=== PATIENT | female | born 1965 | race Caucasian/White ===

== ENCOUNTER → 2017-05-12 | Outpatient (CLI) | payer OTHER ==
--- NOTE | 2017-05-12 16:02 | REPMRS ---
Patient History The patient states she had a clinical breast exam in 2016. Family history of breast cancer in maternal grandmother under age 50. Took hormonal contraceptives for 18 years. Taking estrogen for 3 years. Digital Mammo Screening Bilat: May 12, 2017 - Exam #: [id number] Bilateral CC and MLO view(s) were taken. Technologist: Fabiola Verma, Technologist Prior study comparison: March 05, 2016, digital woman screen mammo, performed at [facility]. March 12, 2015, digital woman screen mammo, performed at [facility]. FINDINGS: There are scattered fibroglandular densities. There has been no change in the appearance of the mammogram from the prior studies. There is a mild amount of residual fibroglandular tissue which is fairly symmetric. There is no interval development of dominant mass, architectural distortion, or clustered microcalcification suggestive of malignancy. ASSESSMENT: BI-RADS/ACR category 1 mammogram. Negative. Recommendation Routine screening mammogram in 1 year (for women over age 40). This mammogram was interpreted with the aid of an FDA-approved computer-aided dectection system. Electronically Signed By: Nickolas Merchant MD 05/12/17 [id number]
== END ==
LOC: M RAD 15:06
PROVIDERS: ATTEND Obstetrics & Gynecology
DX: Z12.39 Encounter for other screening for malignant neoplasm of breast (principal)

== ENCOUNTER → 2017-05-28 | Outpatient (REF) | payer OTHER ==
[2017-05-28 13:29] LABS: LUTEINIZING HORMONE 38.4 mIU/mL
[2017-05-28 13:29] LABS: PROGESTERONE < 0.2 NG/ML
[2017-05-28 13:30] LABS: ESTRADIOL < 19.0 PG/ML; FOLLICLE STIMULATING HORMONE 58.7 mIU/mL
[2017-05-28 13:42] LABS: FREE T4 0.64 NG/DL (0.76-1.46)
[2017-06-02 00:06] LABS: SEX HORMONE BINDING GLOBULIN 45.6 nmol/L (17.3-125.0)
[2017-06-02 00:06] LABS: ESTRONE SERUM 34 pg/mL (.)
== END ==
LOC: M LAB REF 11:58
DX: N95.1 Menopausal and female climacteric states (principal)

== ENCOUNTER → 2017-11-01 | Outpatient (CLI) | payer OTHER | LOC: M LRY 17:01 | DX: R07.81 Pleurodynia (principal) ==

== ENCOUNTER → 2018-06-16 | Outpatient (CLI) | payer OTHER ==
[2018-06-16 16:59] LABS: BASO % 0.6 % (0.0-1.0); EOS # 0.1 10^3/uL (0.0-0.50); EOS % 1.3 % (0.0-3.0); HEMATOCRIT 36.5 % (36.0-47.0); HEMOGLOBIN 12.3 g/dl (12.0-15.5); LYMPH # 1.8 10^3/uL (1.5-4.5); LYMPH % 33.9 % (24.0-44.0); MEAN CORPUSCULAR HEMOGLOBIN 33.3 pg (27.0-33.0); MEAN CORPUSCULAR HGB CONC 33.7 g/dl (32.0-36.5); MEAN CORPUSCULAR VOLUME 98.9 fl (80.0-96.0); MONO # 1.1 10^3/uL (0.0-0.8); MONO % 20.1 % (0.0-5.0); NEUTROPHILS # 2.3 10^3/uL (1.8-7.7); NEUTROPHILS % 43.9 % (36.0-66.0); PLATELET COUNT, AUTOMATED 204 10^3/uL (150-450); RED BLOOD COUNT 3.69 10^6/uL (4.00-5.40); WHITE BLOOD COUNT 5.3 10^3/uL (4.0-10.0)
[2018-06-16 17:00] LABS: ALT/SGPT 49 U/L (12-78); C REACTIVE PROTEIN QUANTITATIV < 0.30 MG/DL (0.00-0.30); CREATININE FOR GFR 0.63 MG/DL (0.55-1.30); GLOMERULAR FILTRATION RATE > 60.0 (>51)
[2018-06-16 18:20] LABS: ERYTHROCYTE SEDIMENTATION RATE 28 mm/hr (0-30)
== END ==
LOC: M WUC 13:35
PROVIDERS: ATTEND Physician Assistant Medical
DX: Z79.899 Other long term (current) drug therapy (principal); M05.79 Rheumatoid arthritis with rheumatoid factor of multiple sites without organ or systems involvement